=== PATIENT | male | born 1970 | race Caucasian/White ===

== ENCOUNTER 2017-01-24 03:19 | Emergency (ER) | payer OTHER ==
[~2017-01-24] VITALS: Ht 182.9 cm; Wt 88.5 kg
--- NOTE | 2017-01-24 03:50 | NUR ---
Pt ambulated to room with steady gait. Pt c/o generalized abd pain. Denies N/V/D sts might be constipation but sts had normal BM yesterday. MD at bedside, awaiting further eval.
[2017-01-24] MEDS ORDERED: MAG HYDROX/AL HYDROX/SIMETH 30 ML LIQUID UDC PO ONE (04:00)
[2017-01-24] MEDS ORDERED: DICYCLOMINE HCL 10 MG/5 ML UDC LIQ PO ONE (04:00)
[2017-01-24] MEDS ORDERED: MAG HYDROX/AL HYDROX/SIMETH 30 ML LIQUID UDC ONE (04:06)
[2017-01-24] MEDS ORDERED: DICYCLOMINE HCL 10 MG/5 ML UDC LIQ ONE (04:06)
--- NOTE | 2017-01-24 04:12 | NUR ---
Pt sts he is feeling better and requesting to go home. MD notified. Pt stable for discharge per MD. Pt given ACI. Pt verbalized understanding of dc instructions. Pt ambulated out of er with steady gait and all personal belongings
[2017-01-24 04:14] VITALS: BP 157/100
== END 2017-01-24 04:15 | disposition home or self-care (01) ==
LOC: ER 03:23
DX: R10.9 Unspecified abdominal pain (principal); F10.20 Alcohol dependence, uncomplicated
CPT/HCPCS: 99283; A4663